=== PATIENT | male | born 1990 | race African-American/Black ===

== ENCOUNTER 2018-08-19 21:27 | Inpatient (IN) ==
[2018-08-19 22:19] LABS: Basophils % 0.4 % (0.0-0.8); Eosinophils % 0.2 % (0.00-10.9); Hemoglobin 8.7 GM/DL (14.0-18.0); Immature Granulocytes % 0.7 %; Immature Granulocytes Absolute 0.06 #; Lymphocytes % 22.2 % (21.2-54.2); Mean Corpuscular Volume 94.3 FL (87-102); Mean Platelet Volume 9.8 FL (9.6-12.0); Monocytes % 6.7 % (1.7-12.7); NRBC # 0.02 10*3/uL; Neutrophils % 69.8 % (38.7-73.9); Platelet Count 269 T/CUMM (130-400); Red Blood Count 3.18 MC/CUMM (3.8-5.5); Red Cell Distribution Width 17.2 % (9.3-17.3); White Blood Count 9.1 T/CUMM (4-12)
[2018-08-19 22:23] LABS: INR 1.4; Partial Thromboplastin Time 29.2 SECS (0-40)
[2018-08-19 22:26] LABS: Albumin 2.1 G/DL (3.4-5.0); Bilirubin,Total 1.2 MG/DL (0.2-1.0); Osmolality,Calculated 264.7 MOS/KG (273-304); Total Protein 7.6 G/DL (6.4-8.3)
[2018-08-20] MEDS ORDERED: PIPERACILLIN/TAZOBACTAM 3,375 MG in SODIUM CHLORIDE 0.9% 100 ML IV STA (00:46)
[2018-08-20 01:12] LABS: Apearance,Urine CLEAR (Clear); Bilirubin,Urine Negative (Negative); Blood, Urine Small mg/dL (Negative); Glucose,Urine (UA) Negative (Negative); Ketones,Urine Negative (Negative); Mucus,Urine Occasional /LPF (Occasional); Nitrite,Urine Negative (Negative); Protein,Urine 30 MG/DL; RBC,Urine 1 /HPF (0-4); Urine Color Yellow (Yellow); Urine Specific Gravity 1.013 (1.001-1.035); WBC,Urine 1 /HPF (0-6)
[2018-08-20] MEDS ORDERED: guaiFENesin/DM ER 600-30 MG TABLET PO PRN (01:31)
[2018-08-20] MEDS ORDERED: MORPHINE 4 MG/1 ML VIAL IV PRN (01:31)
[2018-08-20] MEDS ORDERED: BISACODYL 5 MG TABLET PO PRN (01:31)
[2018-08-20] MEDS ORDERED: NICOTINE 21 MG/24 HR PATCH TRANSDERM PRN (01:31)
[2018-08-20] MEDS ORDERED: ENOXAPARIN 40 MG/0.4 ML SYRINGE SUBCUT ONE (01:31)
[2018-08-20] MEDS ORDERED: diphenhydrAMINE CAP 25 MG CAPSULE PO PRN (01:31)
[2018-08-20] MEDS ORDERED: ONDANSETRON 4 MG/2 ML VIAL IV PRN (01:31)
[2018-08-20] MEDS ORDERED: ENOXAPARIN 120 MG/0.8 ML SYRINGE SUBCUT ONE (02:37)
[2018-08-20] MEDS: ACETAMINOPHEN 325 MG TABLET PO PRN ×2 (03:20→15:26)
[2018-08-20 04:39] LABS: Basophils # 0.1 10*3/uL (0.0-0.2); Basophils % 0.5 % (0.0-0.8); Eosinophils % 0.1 % (0.00-10.9); Hematocrit 26.2 VOL% (42.0-52.0); Hemoglobin 7.7 GM/DL (14.0-18.0); Immature Granulocytes Absolute 0.11 #; Lymphocytes # 2.2 10*3/uL (1.4-4.0); Lymphocytes % 19.7 % (21.2-54.2); Mean Corpuscular HGB Conc 29.4 GM/DL (32-36); Mean Corpuscular Volume 93.6 FL (87-102); Mean Platelet Volume 9.8 FL (9.6-12.0); Monocytes % 7.8 % (1.7-12.7); NRBC # 0.02 10*3/uL; Neutrophils % 70.9 % (38.7-73.9); Platelet Count 243 T/CUMM (130-400); Red Cell Distribution Width 17.4 % (9.3-17.3)
[2018-08-20 04:49] LABS: Albumin 1.9 G/DL (3.4-5.0); Bilirubin,Total 1.4 MG/DL (0.2-1.0); Calcium 7.2 MG/DL (8.5-10.1); Osmolality,Calculated 272.8 MOS/KG (273-304); Total Protein 6.9 G/DL (6.4-8.3)
[2018-08-20] MEDS: VANCOMYCIN INJ 1,000 MG in SODIUM CHLORIDE 0.9% 250 ML IV SCH ×3 (05:28→21:29)
[2018-08-20] MEDS: ALBUTEROL/IPRATROPIUM 3 ML NEB RESP TX SCH ×3 (07:12→18:57)
[2018-08-20] MEDS: ISOSORBIDE DINITRATE 10 MG TABLET PO SCH ×2 (09:15→21:29)
[2018-08-20] MEDS: SPIRONOLACTONE 25 MG TABLET PO SCH (09:16)
[2018-08-20] MEDS: PANTOPRAZOLE 40 MG TABLET PO SCH (09:16)
[2018-08-20] MEDS: POTASSIUM CHLORIDE 20 MEQ TABLET PO PRN ×2 (09:16→14:05)
[2018-08-20] MEDS: POTASSIUM CHLORIDE 20 MEQ PACK PO SCH (09:16)
[2018-08-20] MEDS: DIGOXIN 0.125 MG TABLET PO SCH (09:16)
[2018-08-20] MEDS: PIPERACILLIN/TAZOBACTAM 3,375 MG in SODIUM CHLORIDE 0.9% 100 ML IV SCH ×2 (09:16→17:50)
[2018-08-20 09:55] LABS: % Iron Saturation 7.6 % (18-50); Ferritin 323.9 ng/ml (26-388)
[2018-08-20 10:16] LABS: Folate > 24.0 NG/ML (5.4-24.0); Vitamin B12 704 PG/ML (211-911)
[2018-08-20] MEDS: FLUCONAZOLE INJ 400 MG in PREMIX 1 EACH IV SCH (18:42)
[2018-08-20 20:24] LABS: Barbiturates Screen,Urine Negative (Negative); Benzodiazepines Screen,Urine Negative (Negative); Cannabinoid Screen,Urine Negative (Negative); Opiate Screen,Urine Negative (Negative); Phencyclidine Screen,Urine Negative (Negative)
[2018-08-20] MEDS: DOXYCYCLINE HYCLATE 100 MG CAPSULE PO SCH (21:29)
[2018-08-21] MEDS: ALBUTEROL/IPRATROPIUM 3 ML NEB RESP TX SCH ×4 (00:28→19:35)
[2018-08-21] MEDS: PIPERACILLIN/TAZOBACTAM 3,375 MG in SODIUM CHLORIDE 0.9% 100 ML IV SCH ×3 (03:57→18:45)
[2018-08-21 04:39] LABS: Basophils # 0.1 10*3/uL (0.0-0.2); Basophils % 0.5 % (0.0-0.8); Eosinophils % 0.2 % (0.00-10.9); Hematocrit 28.8 VOL% (42.0-52.0); Hemoglobin 8.3 GM/DL (14.0-18.0); Immature Granulocytes % 0.6 %; Immature Granulocytes Absolute 0.07 #; Lymphocytes # 1.9 10*3/uL (1.4-4.0); Lymphocytes % 16.3 % (21.2-54.2); Mean Corpuscular HGB Conc 28.8 GM/DL (32-36); Mean Corpuscular Volume 94.4 FL (87-102); Mean Platelet Volume 9.7 FL (9.6-12.0); Monocytes % 7.3 % (1.7-12.7); NRBC # 0.03 10*3/uL; Neutrophils % 75.1 % (38.7-73.9); Platelet Count 267 T/CUMM (130-400); Red Blood Count 3.05 MC/CUMM (3.8-5.5); Red Cell Distribution Width 17.9 % (9.3-17.3); White Blood Count 11.8 T/CUMM (4-12)
[2018-08-21 04:56] LABS: Calcium 8.7 MG/DL (8.5-10.1); Osmolality,Calculated 268.4 MOS/KG (273-304)
[2018-08-21 05:08] LABS: Hypochromasia 1+; Ovalocytes Slight; Platelet Estimate Adequate
[2018-08-21] MEDS: VANCOMYCIN INJ 1,000 MG in SODIUM CHLORIDE 0.9% 250 ML IV SCH ×2 (06:41→13:35)
[2018-08-21] MEDS: SPIRONOLACTONE 25 MG TABLET PO SCH (09:17)
[2018-08-21] MEDS: ISOSORBIDE DINITRATE 10 MG TABLET PO SCH ×2 (09:17→20:25)
[2018-08-21] MEDS: DIGOXIN 0.125 MG TABLET PO SCH (09:18)
[2018-08-21] MEDS: PANTOPRAZOLE 40 MG TABLET PO SCH (09:18)
[2018-08-21] MEDS: POTASSIUM CHLORIDE 20 MEQ PACK PO SCH (09:18)
[2018-08-21] MEDS: DOXYCYCLINE HYCLATE 100 MG CAPSULE PO SCH ×2 (09:18→20:25)
[2018-08-21] MEDS: ACETAMINOPHEN 325 MG TABLET PO PRN (15:15)
[2018-08-21] MEDS: FLUCONAZOLE INJ 400 MG in PREMIX 1 EACH IV SCH (18:36)
[2018-08-21 20:44] VITALS: BP 121/91
== END 2018-08-21 20:25 | disposition hospice, home (50) | DRG 137 ==
LOC: N.ED 21:27 → N.EDINP 21:27 → SUATTDRO 08-20 01:31 → N.TELEN 08-20 02:40 → N.ICU 08-20 15:09 → SUPCPDRO 08-21 08:44
PROVIDERS: ADMIT Internal Medicine; ATTEND Internal Medicine